=== PATIENT | female | born 1930 | race Caucasian/White ===

== ENCOUNTER 2018-06-26 10:03 | Emergency (ER) | payer MEDICARE ==
[2018-06-26 10:05] VITALS: BMI 28.2
[2018-06-26 11:03] LABS: HEMOGLOBIN 14.9 g/dL (11.0-16.0); MEAN CELL VOLUME 89.1 fL (81.0-99.0); MEAN CORPUSCULAR HEMOGLOBIN 28.7 pg (27.0-31.0); MEAN CORPUSCULAR HGB CONC 32.2 g/dL (33.0-37.0); MEAN PLATELET VOLUME 7.9 fL (7.2-11.7); RBC 5.18 Mil/uL (3.80-5.20); RED CELL DISTRIBUTION WIDTH 16.2 % (11.5-14.5); WHITE BLOOD COUNT 9.2 K/uL (4.8-10.8)
[2018-06-26] MEDS ORDERED: Sodium Chloride 0.9% 1,000 ML IV ONE (11:06)
[2018-06-26 11:15] LABS: ALB/GLOB RATIO 1.4 (1.0-2.1); ALBUMIN 4.8 g/dL (3.5-5.0); ALT/SGPT 13 U/L (9-52); AST/SGOT 22 U/L (14-36); BLOOD UREA NITROGEN 25 mg/dL (7-17); CALCIUM 9.5 mg/dl (8.6-10.4); GFR NON-AFRICAN AMERICAN 53
[2018-06-26] MEDS ORDERED: Sodium Chloride 0.9% 1,000 ML ONE (11:15)
--- NOTE | 2018-06-26 11:47 | C.PDOC ---
History Of Present Illness 87 years old female presents to ED for complaints of crampy and intermittent abdominal pain associated with non-bloody vomiting and diarrhea that began 3 days ago. Denies fever or any other complaints. Time Seen by Provider: 06/26/18 10:18 Chief Complaint (Nursing): GI Problem History Per: Patient History/Exam Limitations: no limitations Onset/Duration Of Symptoms: Days (3) Current Symptoms Are (Timing): Still Present Location Of Pain/Discomfort: Diffuse Radiation Of Pain To:: None Quality Of Discomfort: Cramping Associated Symptoms: Nausea, Vomiting, Diarrhea. denies: Fever, Chills Exacerbating Factors: None Alleviating Factors: None Last Bowel Movement: Today Recent travel outside of the [place]: No Abnormal Vaginal Bleeding: No Past Medical History Reviewed: Historical Data, Nursing Documentation, Vital Signs Vital Signs: Last Vital Signs Temp 98.0 F 06/26/18 10:05 Pulse 85 06/26/18 10:05 Resp 20 06/26/18 10:05 BP 137/89 06/26/18 10:05 Pulse Ox 97 06/26/18 10:05 - Medical History PMH: Alzheimer's Disease, Dementia, Depression, HTN, Hypercholesterolemia Denies: Chronic Kidney Disease - [facility] Procedures INTRODUCTION OF SERUM/TOX/VACCINE INTO MUSCLE, PERC APPROACH (02/08/18) REPAIR FACE SKIN, EXTERNAL APPROACH (02/08/18) Family History: States: Unknown Family Hx - Social History Hx Alcohol Use: No Hx Substance Use: No - Immunization History Hx Tetanus Toxoid Vaccination: No Hx Influenza Vaccination: No Hx Pneumococcal Vaccination: No Review Of Systems Except As Marked, All Systems Reviewed And Found Negative. Constitutional: Negative for: Fever, Chills Gastrointestinal: Positive for: Vomiting, Abdominal Pain, Diarrhea Genitourinary: Negative for: Dysuria Skin: Negative for: Rash Neurological: Negative for: Weakness, Numbness Physical Exam - Physical Exam Appears: Well, Non-toxic Skin: Normal Color, Warm, Dry, No Rash Head: Atraumatic, Normacephalic Eye(s): bilateral: Normal Inspection, PERRL, EOMI Oral Mucosa: Moist Throat: Normal, No Erythema, No Exudate, No Drooling, No Mass Neck: Normal ROM, Supple Chest: Symmetrical, No Tenderness Cardiovascular: Rhythm Regular, No Murmur Respiratory: Normal Breath Sounds, No Rales, No Rhonchi, No Wheezing Gastrointestinal/Abdominal: Normal Exam, Bowel Sounds (Active ), Soft, No Tenderness, No Guarding, No Rebound Extremity: Normal ROM Extremity: Bilateral: Atraumatic, Normal Color And Temperature, Normal ROM Pulses: Left Radial: Normal, Right Radial: Normal Neurological/Psych: Oriented x3, Normal Speech Gait: Steady ED Course And Treatment - Laboratory Results Result Diagrams: 06/26/18 10:58 06/26/18 10:58 Lab Results: Total Bilirubin 0.8 mg/dL (0.2-1.3) 06/26/18 10:58 AST 22 U/L (14-36) 06/26/18 10:58 ALT 13 U/L (9-52) 06/26/18 10:58 Alkaline Phosphatase 76 U/L (38-126) 06/26/18 10:58 Total Protein 8.2 g/dL (6.3-8.3) 06/26/18 10:58 Albumin 4.8 g/dL (3.5-5.0) 06/26/18 10:58 Globulin 3.3 gm/dL (2.2-3.9) 06/26/18 10:58 Albumin/Globulin Ratio 1.4 (1.0-2.1) 06/26/18 10:58 O2 Sat by Pulse Oximetry: 97 (RA) Pulse Ox Interpretation: Normal Medical Decision Making Medical Decision Making: Plan: * Zofran * Pepcid * IV Fluids * Blood work Disposition Counseled Patient/Family Regarding: Studies Performed, Diagnosis, Need For Followup, Rx Given - Disposition Referrals: Gee Villegas MD [Medical Doctor] - Disposition: HOME/ ROUTINE Disposition Time: 12:25 Condition: STABLE Prescriptions: Dicyclomine [Dicyclomine HCl] 10 mg PO TID #12 cap Ondansetron ODT [Zofran ODT] 4 mg PO TID #12 odt Instructions: Gastritis (DC) Forms: [facility] (Liberian) - POA Present On Arrival: None - Clinical Impression Clinical Impression: Gastroenteritis - Scribe Statement The provider has reviewed the documentation as recorded by the Isamaribana luisa Hough All medical record entries made by the Scribe were at my direction and personally dictated by me. I have reviewed the chart and agree that the record accurately reflects my personal performance of the history, physical exam, medical decision making, and the department course for this patient. I have also personally directed, reviewed, and agree with the discharge instructions and disposition.
[2018-06-26 11:52] LABS: LIPASE 231 U/L (23-300)
[2018-06-26 13:22] VITALS: BP 133/75; PULSE 77; RESP 18; TEMP 98.5; O2SAT 100
== END 2018-06-26 13:22 | disposition home or self-care (01) ==
LOC: C.ER 10:03
DX: K52.9 Noninfective gastroenteritis and colitis, unspecified (principal); I10 Essential (primary) hypertension; E78.00 Pure hypercholesterolemia, unspecified; F02.80 Dementia in other diseases classified elsewhere, unspecified severity, without behavioral disturbance, psychotic disturbance, mood disturbance, and anxiety; G30.9 Alzheimer's disease, unspecified
CPT/HCPCS: 80053; 83690; 85027; 96361; 96374; 96375; 99284; J2405; J7030